=== PATIENT | male | born 1990 | race Caucasian/White ===

== ENCOUNTER 2021-07-27 13:50 | Outpatient (REF) | payer BC, SELFPAY ==
[2021-07-28 00:56] LABS: Vitamin D 25 Total 30.2 ng/mL (30-100)
== END 2021-07-27 13:51 | disposition home or self-care (01) ==
LOC: NCHCN 13:50
PROVIDERS: Visit Provider Nurse Practitioner Psychiatric/Mental Health
DX: F32.5 Major depressive disorder, single episode, in full remission (principal)
CPT/HCPCS: 82306

== ENCOUNTER 2023-09-25 10:26 | Outpatient (REF) | payer BC, SELFPAY ==
--- OUTSIDE RECORDS SUMMARY | 2023-09-25 10:29 | XMS_ITS | CCD ---
Author Name Unknown Address [address] [place] [address] [phone] Organization Unknown Address [address] [place] [address] [phone] Care Team Providers Care Fruit Dumper Name Role Phone KHUSHBOO KILGORE Attending Physician [phone] KUHSHBOO KILGORE Er Physician [phone] CHAD Woodard Registered Nurse [phone] Vital Signs Vital Sign Value Unit Date/Time Recent/Initial ? BMI (Body Mass Index) 21.52 kg/m^2 04/11/2023 08: 19 Initial VS Weight Measured 150 lbs 04/11/2023 08:19 Ini tial VS Height 70 in 04/11/2023 08:19 Initial VS BSA (Body Surface Area) 1.83 m^2 04/11/2023 0 8:19 Initial VS BP Systolic 134 mmHg 04/11/2023 08:19 Initial VS BP Diastolic 73 mmHg 04/11/2023 08:19 Initia l VS Respiratory Rate 18 bpm 04/11/2023 08:19 In itial VS Heart Rate 67 bpm 04/11/2023 08:19 Initial VS O2 % BldC Oximetry 99 % 04/11/2023 08:19 Initial VS Body Temperature 35.7 degrees 04/11/2023 08:19 In itial VS Allergies Allergy Code Allergy Type Reaction Status PCN (penicillin) 0 Drug allergy Active Procedures Unknown or Not Available. History of Immunizations Unknown or Not Available. Problems Problem Code Start Date Resolved Date Status ALCOHOL ABUSE 35597 Active NONPSYCHOTIC MENTAL DISORDER 3009 Active DEPRESSIVE DISORDER 311 Activ e CANNABIS ABUSE 73969 Active Results Unknown or Not Available. Active Medications Unknown or Not Available. Medications Administered During Visit Unknown or Not Available. Encounters Encounter Diagnosis Diagnosis Code Start Date Contusion of left front wall of thorax, initial encounter [id number] 04/11/2023 Social History Smoking Status Code Start Date End Date Never smoker [id number] Patient Decision Aids Unknown or Not Available. Discharge Instructions You were admitted to [facility] on 04/11/2023 08:04 with a principal diagnosis of Contusion of left front wall of thorax, initial encounter You were discharged from [facility] on 04/11/2023 09:20 Should you have any questions prior to discharge, please contact a member of your healthcare team. If you have left the hospital and have any questions, please contact your primary care physician. Chief Complaint and Reason For Visit Chief Complaint Date of Onset LEFT SIDED RIB PAIN Function Status Unknown or Not Available. Plan of Care Unknown or Not Available. Referral/Transition of Care Unknown or Not Available.
[2023-09-25 14:51] LABS: Abs Immature Grans 0.01 10^3/uL (0.0-0.06); Absolute Basophil Count 0.04 10^3/uL (0.0-0.2); Absolute Eosinophil Count 0.19 10^3/uL (0.0-0.7); Absolute Lymphocyte Count 1.57 10^3/uL (1.2-3.4); Absolute Monocyte Count 0.23 10^3/uL (0.1-0.8); Basophils % 1.1; Eosinophils % 5.2; HCT 43.7 % (40.0-50.0); HGB 14.7 g/dL (13.5-17.5); Immature Grans % 0.3; Lymphocytes % 43.1; MCH 30.4 pg (27.0-33.0); MCHC 33.6 % (32.0-36.0); MCV 90 fL (80-95); MPV 9.7 fL (8.0-11.0); Monocytes % 6.3; Platelet Count 248 10^3/uL (130-400); RBC 4.84 10^6/uL (4.36-5.78); RDW 12.8 % (11.8-14.1); RDW-SD 42.2 fL; WBC 3.64 10^3/uL (4.4-10.8)
[2023-09-25 15:26] LABS: TSH (W/Ref FT4) 0.85 uIU/mL (0.36-3.74); Vitamin B12 261 pg/mL (193-986)
== END 2023-09-25 10:27 | disposition home or self-care (01) ==
LOC: NCHCN 10:26
PROVIDERS: Visit Provider Family Medicine
DX: R53.83 Other fatigue (principal); E53.8 Deficiency of other specified B group vitamins
CPT/HCPCS: 82607; 84443; 85025